=== PATIENT | female | born 1955 | race Caucasian/White ===

== ENCOUNTER → 2018-07-04 | Outpatient (CLI) | payer OTHER ==
[~2018-07-04] MED LIST: BISO1TAB39 PO; BISO1TAB41 PO; MTF500T PO; NF-TRA/ACE PO; OMEP20TA2 PO; PNT40TEC; TRAM50TA2 PO; VRP240TCR
[2018-07-04 08:44] LABS: BASOPHILS # (AUTO) 0.1 10^3/uL (0.0-0.1); BASOPHILS % (AUTO) 1 % (0-10); EOSINOPHILS # (AUTO) 0.2 10^3/uL (0.0-0.3); EOSINOPHILS % (AUTO) 4 % (0-10); HEMATOCRIT 41 % (35-52); HEMOGLOBIN 13.8 G/DL (11.5-16.0); LYMPHOCYTES # (AUTO) 2.2 X 10^3 (1.0-4.0); LYMPHOCYTES % (AUTO) 34 % (12-44); MEAN CORPUSCULAR HEMOGLOBIN 30 PG (25-34); MEAN CORPUSCULAR HGB CONC 34 G/DL (32-36); MEAN CORPUSCULAR VOLUME 89 FL (80-99); MEAN PLATELET VOLUME 10.6 FL (7.4-10.4); MONOCYTES # (AUTO) 0.6 X 10^3 (0.0-1.0); MONOCYTES % (AUTO) 9 % (0-12); NEUTROPHILS # (AUTO) 3.3 X 10^3 (1.8-7.8); NEUTROPHILS % (AUTO) 52 % (42-75); PLATELET COUNT 193 10^3/uL (130-400); RED BLOOD COUNT 4.61 10^6/uL (4.35-5.85); RED CELL DISTRIBUTION WIDTH 13.7 % (10.0-14.5); WHITE BLOOD COUNT 6.4 10^3/uL (4.3-11.0)
[2018-07-04 09:15] LABS: ALANINE AMINOTRANSFERASE 26 U/L (0-55); ALKALINE PHOSPHATASE 96 U/L (40-136); BILIRUBIN,TOTAL 0.8 MG/DL (0.1-1.0); BUN/CREATININE RATIO 18; CALCIUM 9.2 MG/DL (8.5-10.1); CARBON DIOXIDE 28 MMOL/L (21-32); CHLORIDE 108 MMOL/L (98-107); CHOLESTEROL 142 MG/DL (< 200); GFR ESTIMATED > 60; GLUCOSE 112 MG/DL (70-105); HDL CHOLESTEROL 47 MG/DL (40-60); POTASSIUM 4.2 MMOL/L (3.6-5.0); SODIUM 143 MMOL/L (135-145); TOTAL PROTEIN 6.5 GM/DL (6.4-8.2); TRIGLYCERIDES 87 MG/DL (<150); VLDL CHOLESTEROL 17 MG/DL (5-40)
== END ==
LOC: LAB 08:29
PROVIDERS: ATTEND Family Medicine
DX: E11.9 Type 2 diabetes mellitus without complications (principal)
CPT/HCPCS: 36415; 80053; 80061; 83036; 85025

== ENCOUNTER 2019-03-06 07:29 | Emergency (ER) | payer OTHER ==
[~2019-03-06] VITALS: Ht 157.5 cm; Wt 99.8 kg
--- NOTE | 2019-03-06 08:21 | ED EENT ---
History of Present Illness General Chief Complaint: Eye Problems Stated Complaint: EYE PAIN Nursing Triage Note: Pt ambulates to Rm 5 with complaints of left eye irritation. Pt reports she was cleaning with liquid lysol around 0600 this am and it sprayed back in her left eye. Pt states she rinsed her eyes with water for 15-20 minutes with some relief after but eye is still irritated. Pt states it "feel like a hair is in it". Pt denies any loss of vision or visual disturbances in eye. Source: patient Exam Limitations: no limitations (DEANNA BRODY) History of Present Illness Date Seen by Provider: Mar 06, 2019 Time Seen by Provider: 08:10 Initial Comments Here with left eye pain after accidental spraying of Lysol toilet card cleaner. She rinsed the eye for 15-20 minutes after, but still feels like there is a hair or something stuck in her eye. There is mild erythema of the left inferior and medial conjunctiva. Timing/Duration: abrupt Severity: mild Location: eye (L) Prearrival Treatment: flushing eyes Presenting Symptoms/Injuries: Eye irritation (DEANNA BRODY) Initial Comments Here with complaint of left eye pain after splashing diluted Lysol toilet bowl card cleaner to the left eye. She said afterwards. She denies vision changes and pain is a little better now. Associated Symptoms: No facial pain/swelling, No fever (AMOS AMARO MD) Allergies and Home Medications Allergies Coded Allergies: NKANo Known Allergies (Verified Allergy, Unknown, 11/11/06) Home Medications Bisoprol/Hydrochlorothiazide 1 Tab Tablet, 1 TAB PO DAILY, (Reported) Metformin Hcl 500 Mg Tablet, 500 MG PO DAILY, (Reported) Omeprazole 20 Mg Tablet.dr, 20 MG PO DAILY, (Reported) Tramadol/Acetaminophen 1 Ea Tab, 1 TAB PO Q8H PRN for PAIN, (Reported) Patient Home Medication List Home Medication List Reviewed: Yes (AMOS AMARO MD) Review of Systems Review of Systems Constitutional: no symptoms reported Eyes: Foreign Body Sensation, Pain Ears: No Symptoms Reported Nose: no symptoms reported Mouth: no symptoms reported Respiratory: no symptoms reported Cardiovascular: no symptoms reported Gastrointestinal: no symptoms reported Neurological: No Symptoms Reported (DEANNA BRODY) Past Geoiyml-Tkrcsj-Hzcggs Hx Past Med/Social Hx: Reviewed Nursing Past Med/Soc Hx (AMOS AMARO MD) Patient Social History Alcohol Use: Denies Use Recreational Drug Use: No Smoking Status: Never a Smoker 2nd Hand Smoke Exposure: No Recent Foreign Travel: No Contact w/Someone Who Travel: No Recent Infectious Disease Expo: No Recent Hopitalizations: No Physical Abuse: No Sexual Abuse: No Mistreated: No Fear: No (DEANNA BRODY) Immunizations Up To Date Tetanus Booster (TDap): Unknown Date of Pneumonia Vaccine: Apr 21, 2014 (DEANNA BRODY) Seasonal Allergies Seasonal Allergies: No (DEANNA BRODY) Past Medical History Surgeries: Yes (T&A) Respiratory: Yes (PNEUMONITIS) Cardiac: Yes (VALVE REGURGITATION) Hypertension Neurological: No Reproductive Disorders: No Gastrointestinal: No Musculoskeletal: No Endocrine: Yes Diabetes, Non-Insulin dep HEENT: No Cancer: No Psychosocial: No Integumentary: No Blood Disorders: No (DEANNA BRODY) Family Medical History Reviewed Nursing Family Hx (AMOS AMARO MD) Alcoholism Arthritis Asthma Cardiovascular disease Diabetes mellitus Drug abuse Hypertension Myocardial infarction Osteoporosis Parkinson's disease Respiratory disorder Thyroid disease No Family History of: AIDS Abdominal aortic aneurysm Hudson's disease Alzheimer's disease Aphasia Cancer of mouth Cataracts Colon cancer Completed stroke Congenital disease Congenital heart disease Coronary thrombosis Cystic fibrosis Deafness or hearing loss Dementia Dysphasia Fibrocystic disease of breast Gastroenteritis Glaucoma Headache disorder Hypercholesterolemia Infertility Kidney disease Neoplasm Not obtainable due to adoption Prostate cancer Psychosocial problem Seizure disorder Severe allergy Tuberculosis Visual disorder CAD Over 55 Years Old (Father had heart attack at 72) (DEANNA BRODY) Physical Exam Vital Signs Vital Signs - First Documented 03/06/19 07:52 Temp 96.0 Pulse 63 Resp 19 B/P (MAP) 160/74 (102) Pulse Ox 98 O2 Delivery Room Air (AMOS AMARO MD) Height, Weight, BMI Height: 5'2.00" Weight: 220lbs. 2.0oz. [id number]; BMI Method:Stated Eyes: right eye normal inspection; left eye conjunctival inflammation; bilateral eye EOMI (DEANNA BRODY) General Appearance: WD/WN, no apparent distress Eyes: left eye other (mild erythema to the left eye); bilateral eye PERRL Cardiovascular: regular rate, rhythm, no murmur Respiratory: lungs clear, no accessory muscle use Neurologic/Psychiatric: alert, oriented x 3 (AMOS AMARO MD) Progress/Results/Core Measures Results/Orders My Orders Orders - AMOS AMARO MD Tetracaine 0.5% Ophth Carisa Sdv (Tetracai (03/06/19 08:30) Fluorescein Strips ([id number]) (03/06/19 08:30) (AMOS AMARO MD) Medications Given in ED Current Medications Medications Dose Ordered Sig/Hilary Route Start Time Stop Time Status Last Admin Dose Admin Fluorescein Sodium 1 mg ONCE ONCE OU 03/06/19 08:30 03/06/19 08:31 DC 03/06/19 08:35 1 MG Tetracaine HCl 4 ml ONCE ONCE OU 03/06/19 08:30 03/06/19 08:31 DC 03/06/19 08:35 4 ML (AMOS AMARO MD) Vital Signs/I&O 03/06/19 07:52 Temp 96.0 Pulse 63 Resp 19 B/P (MAP) 160/74 (102) Pulse Ox 98 O2 Delivery Room Air (AOMS AMARO MD) Blood Pressure Mean: 102 Progress Progress Note : Progress Note Seen and evaluated. Tetracaine and fluoroscine evaluation (DEANNA BRODY) Progress Note : Progress Note I have seen and evaluated patient and agree with above except as indicated. I have directed the plan of care. Tetracaine drops and fluorescein stain to the left eye. No obvious foreign body or abrasion noted. Overall feels better. Discharged home with return precautions. Patient verbalize understanding instructions and agreement with plan. (AMOS AMARO MD) Departure Impression Primary Impression: Chemical conjunctivitis of left eye Disposition: 01 HOME, SELF-CARE Condition: Improved Departure-Patient Inst. Decision time for Depature: 08:52 (AMOS AMARO MD) Referrals: BHAVESH KWOK MD (PCP/Family) Primary Care Physician Patient Instructions: Chemical Eye Injury (DC) Add. Discharge Instructions: All discharge instructions reviewed with patient and/or family. Voiced understanding. You may use [id number] natural tears or Visine eyedrops or similar as needed per package directions. You may take ibuprofen 400 mg every 6 hours as needed for pain. You may take Tylenol/acetaminophen 1000 mg every 8 hours as needed for pain. Follow-up with your eye doctor in one to 2 days for recheck. Return for worse pain, vision problems, increasing redness, drainage from the eye or other concerns as needed. DEANNA BRODY MED STUD Mar 06, 2019 08:21 AMOS AMARO MD Mar 06, 2019 08:49
[2019-03-06] MEDS ORDERED: TETRACAINE 0.5% OPHTH SOLN 4 ML BTL (SINGLE DOSE ONLY) OU ONE (08:30)
[2019-03-06] MEDS ORDERED: FLUORESCEIN (FLUOR-I-STRIPS) 1 MG STRP OU ONE (08:30)
[2019-03-06 09:00] VITALS: BP 142/65
== END 2019-03-06 09:00 | disposition home or self-care (01) ==
LOC: EDUNIT# 07:29 → ER 07:30
DX: T54.91XA Toxic effect of unspecified corrosive substance, accidental (unintentional), initial encounter (principal); H10.212 Acute toxic conjunctivitis, left eye; I10 Essential (primary) hypertension; E11.9 Type 2 diabetes mellitus without complications; Z79.84 Long term (current) use of oral hypoglycemic drugs; Z90.89 Acquired absence of other organs; Z82.49 Family history of ischemic heart disease and other diseases of the circulatory system
CPT/HCPCS: 99283

== ENCOUNTER → 2022-11-24 | Outpatient (CLI) | payer MEDICARE, OTHER | LOC: CARD 09:45 | PROVIDERS: ATTEND Internal Medicine Cardiovascular Disease | DX: I35.1 Nonrheumatic aortic (valve) insufficiency (principal) | CPT/HCPCS: 93306 ==